=== PATIENT | female | born 1945 | race Caucasian/White ===

== ENCOUNTER 2021-11-20 10:21 | Emergency (ER) | payer MEDICARE, BC ==
[~2021-11-20] VITALS: Ht 162.6 cm; Wt 58.0 kg
--- NOTE | 2021-11-20 12:05 | NUR ---
There has been much discussion regarding medication and pt and requesting a rapid covid test. They were educated that another covid test is not nessary.
[2021-11-20] MEDS ORDERED: SOTROVIMAB 500mg injection 500 MG in normal saline 100ml IV soln 100 ML IV ONE (12:15)
--- NOTE | 2021-11-20 12:36 | NUR ---
Pt and her want to disscuss the possible administration of Sotrovimab with their primary MD before it is given.
--- NOTE | 2021-11-20 13:05 | NUR ---
Pt agrees to recieve the medication for covid.
[2021-11-20 15:29] VITALS: BP 126/66
== END 2021-11-20 15:32 | disposition home or self-care (01) ==
LOC: ER 10:21
DX: U07.1 COVID-19 (principal); R05.9 Cough, unspecified; J45.909 Unspecified asthma, uncomplicated; Z88.2 Allergy status to sulfonamides
CPT/HCPCS: 36415; 71045; 99284; J3490; M0247; Q0247; U0003; U0005; 96365